=== PATIENT | female | born 1980 | race American Indian/Alaskan Native ===

== ENCOUNTER 2019-04-24 10:19 | Emergency (ER) | payer SELFPAY ==
[2019-04-24 10:24] VITALS: BP 141/99
[2019-04-24] MEDS ORDERED: DECADRON IV ONE (11:59)
[2019-04-24] MEDS ORDERED: PEPCID IV ONE (11:59)
[2019-04-24] MEDS ORDERED: BENADRYL IV ONE (11:59)
[2019-04-24] MEDS ORDERED: NACL 0.9% 1000 ML 1,000 ML IV ONE (11:59)
--- NOTE | 2019-04-24 12:42 | Emergency Department Report ---
ED Allergic Reaction HPI - General Chief complaint: Allergic Reaction Stated complaint: RASH Time Seen by Provider: 04/24/19 11:20 Source: patient Mode of arrival: Ambulatory Limitations: No Limitations - History of Present Illness Initial Comments: This is a 38-year-old female nontoxic, well nourished in appearance, no acute signs of distress presents to the ED with c/o of rash and itching x2 days. Patient is not sure what the cause of this is. Patient states it is itching and redness. Patient denies any drooling, hoarseness or facial swelling. Patient denies any trauma. She denies any fever, chills, nausea, vomiting, chest pain, shortness of breath, headache, stiff neck, numbness or tingling. Patient states allergies to Motrin and guaifenesin. MD Complaint: allergic reaction -: days(s) Exposure: unknown Symptoms: rash, itching. denies: facial swelling, lip swelling, difficulty swallowing, difficulty breathing, orolingual swelling, hoarseness, syncopy, dizziness, nausea, vomiting, abdominal pain Severity: mild Treatment Prior to Arrival: none Previous Allergy History: none - Related Data Previous Rx's Medication Instructions Recorded Last Taken Type Clindamycin [Clindamycin CAP] 300 mg PO Q8H #20 cap 04/09/15 Unknown Rx oxyCODONE /ACETAMINOPHEN [Percocet 1 tab PO Q6HR PRN #20 tablet 04/09/15 Unknown Rx 5/325] Prednisone [predniSONE 10 mg 10 mg PO .TAPER #1 tab.ds.pk 04/24/19 Unknown Rx (6-Day Pack, 21 Tabs)] diphenhydrAMINE [Benadryl CAP] 25 mg PO Q6HR PRN #20 capsule 04/24/19 Unknown Rx Allergies Allergy/AdvReac Type Severity Reaction Status Date / Time guaifenesin Allergy Severe DIZZINESS,SHALLOW Verified 04/09/15 04:19 BREATHING ibuprofen Allergy Intermediate BLEEDING Verified 04/09/15 04:19 ULCER ED Review of Systems ROS: Stated complaint: RASH Other details as noted in HPI Constitutional: denies: chills, fever Eyes: denies: eye pain, eye discharge, vision change ENT: denies: ear pain, throat pain Respiratory: denies: cough, shortness of breath, wheezing Cardiovascular: denies: chest pain, palpitations Endocrine: no symptoms reported Gastrointestinal: denies: abdominal pain, nausea, diarrhea Genitourinary: denies: urgency, dysuria, discharge Musculoskeletal: denies: back pain, joint swelling, arthralgia Skin: rash, pruritus. denies: lesions Neurological: denies: headache, weakness, paresthesias Psychiatric: denies: anxiety, depression Hematological/Lymphatic: denies: easy bleeding, easy bruising ED Past Medical Hx - Past Medical History Previous Medical History?: Yes Hx Hypertension: Yes Hx Headaches / Migraines: Yes Hx Psychiatric Treatment: (Depression, Anxiety) Hx Asthma: Yes Additional medical history: Scoliosis; Ezema; Tachycardia - Surgical History Past Surgical History?: Yes Hx Cholecystectomy: Yes Additional Surgical History: x2 - Social History Smoking Status: Current Every Day Smoker Substance Use Type: Alcohol - Medications Home Medications: Home Medications Medication Instructions Recorded Confirmed Last Taken Type Clindamycin [Clindamycin CAP] 300 mg PO Q8H #20 cap 04/09/15 Unknown Rx oxyCODONE /ACETAMINOPHEN [Percocet 1 tab PO Q6HR PRN #20 tablet 04/09/15 Unknown Rx 5/325] Prednisone [predniSONE 10 mg 10 mg PO .TAPER #1 tab.ds.pk 04/24/19 Unknown Rx (6-Day Pack, 21 Tabs)] diphenhydrAMINE [Benadryl CAP] 25 mg PO Q6HR PRN #20 capsule 04/24/19 Unknown Rx ED Physical Exam - General Limitations: No Limitations General appearance: alert, in no apparent distress - Head Head exam: Present: atraumatic, normocephalic - Eye Eye exam: Present: normal appearance - ENT ENT exam: Present: normal exam, normal orophraynx, other (no facial swelling. no angioedema) - Neck Neck exam: Present: normal inspection, full ROM, other. Absent: tenderness, meningismus, lymphadenopathy - Respiratory Respiratory exam: Present: normal lung sounds bilaterally. Absent: respiratory distress, wheezes, rales, rhonchi, stridor, chest wall tenderness, accessory muscle use, decreased breath sounds, prolonged expiratory - Extremities Exam Extremities exam: Present: normal inspection, full ROM - Back Exam Back exam: Present: normal inspection, full ROM - Neurological Exam Neurological exam: Present: alert, oriented X3 - Psychiatric Psychiatric exam: Present: normal affect, normal mood - Skin Skin exam: Present: warm, dry, intact, normal color, rash ED Course Vital Signs 04/24/19 04/24/19 10:21 12:24 Temperature 98.3 F Pulse Rate 123 H Respiratory 22 18 Rate Blood Pressure 141/99 O2 Sat by Pulse 100 Oximetry - Reevaluation(s) Reevaluation #1: 04/24/19 12:40 Patient is speaking in full sentences with no signs of distress noted. ED Medical Decision Making - Medical Decision Making This is a 38-year-old female that presents with allergic reaction. Patient is stable was examined by me. There is no facial swelling. No angioedema. There is no cellulitis. No hoarseness. Patient received 1 L normal saline, Benadryl, Decadron, and Pepcid in the ED IV. Patient was instructed not to operate any machinery after discharge due to possible drowsiness of Benadryl. Patient stated that a family member will drive patient home after discharge. Patient is discharged with prednisone and Benadryl. Patient was referred to Follow-up with a primary care doctor in 3-5 days or if symptoms worsen and continue return to emergency room as soon as possible. At time of discharge, the patient does not seem toxic or ill in appearance. No acute signs of distress noted. Patient agrees to discharge treatment plan of care. No further questions noted by the patient. Critical care attestation.: If time is entered above; I have spent that time in minutes in the direct care of this critically ill patient, excluding procedure time. ED Disposition Clinical Impression: Allergic reaction Qualifiers: Encounter type: initial encounter Qualified Code(s): T78.40XA - Allergy, unspecified, initial encounter Disposition: - TO HOME OR SELFCARE Is pt being admited?: No Does the pt Need Aspirin: No Condition: Stable Instructions: Urticaria (ED), Diphenhydramine (By mouth) Additional Instructions: Follow-up with a primary care doctor in 3-5 days or if symptoms worsen and continue return to emergency room as soon as possible. Prescriptions: diphenhydrAMINE [Benadryl CAP] 25 mg PO Q6HR PRN #20 capsule PRN Reason: Itching Prednisone [predniSONE 10 mg (6-Day Pack, 21 Tabs)] 10 mg PO .TAPER #1 tab.ds.pk Referrals: [place] LUIS EDUARDO [Primary Care Provider] - 3-5 Days PRIMARY CAREMD [Referring] - 3-5 Days FRANCISCA SCHUMACHER MD [Staff Physician] - 3-5 Days [facility] [Outside] - 3-5 Days [facility] [Outside] - 3-5 Days Forms: Work/School Release Form(ED)
== END 2019-04-24 13:53 | disposition home or self-care (01) ==
LOC: ED 10:19
DX: T78.40XA Allergy, unspecified, initial encounter (principal); I10 Essential (primary) hypertension; G43.909 Migraine, unspecified, not intractable, without status migrainosus; J45.909 Unspecified asthma, uncomplicated; F41.9 Anxiety disorder, unspecified; F32.9 Major depressive disorder, single episode, unspecified; F17.200 Nicotine dependence, unspecified, uncomplicated; Z90.49 Acquired absence of other specified parts of digestive tract; Z79.899 Other long term (current) drug therapy; Z88.6 Allergy status to analgesic agent; X58.XXXA Exposure to other specified factors, initial encounter
CPT/HCPCS: 96374; 96375; 99282; J1100; J1200; J7030

== ENCOUNTER 2019-11-27 21:45 | Emergency (ER) | payer BC ==
[2019-11-27 23:08] VITALS: BP 145/85
[2019-11-27] MEDS ORDERED: diphenhydrAMINE 50 MG/ML VIAL ONE (23:34)
[2019-11-27] MEDS ORDERED: KETOROLAC 30 MG/1 ML INJ ONE (23:34)
[2019-11-27] MEDS ORDERED: METOCLOPRAMIDE 10 MG/2 ML INJ ONE (23:34)
[2019-11-27] MEDS ORDERED: diphenhydrAMINE 50 MG/ML VIAL IV ONE (23:38)
[2019-11-27] MEDS ORDERED: METOCLOPRAMIDE 10 MG/2 ML INJ IV ONE (23:38)
[2019-11-27] MEDS ORDERED: KETOROLAC 30 MG/1 ML INJ IV ONE (23:38)
--- NOTE | 2019-11-28 00:41 | Emergency Department Report ---
ED Headache HPI - General Chief Complaint: Headache Stated Complaint: SEVERE HEADACHE Time Seen by Provider: 11/28/19 00:36 Source: patient - History of Present Illness Initial Comments: 39-year-old -[place]ones[place] female presents to the emergency room stating she had a headache that started earlier this week and has gotten worse tonight while at work. Patient states that it feels like someone is stomping on her head. Patient reports sensitivity to light and sound. Patient denies any nausea vomiting. Patient denies any weakness slurred speech no neuro deficits. Patient does admit to a history of migraines and fibromyalgia. Patient states that she has been taken her pain medication without resolution of pain. Timing/Duration: 1 week Quality: severe Head Injury Location: frontal Recent Head Trauma: no recent headache/trauma Modifying Factors: improves with: exposure to light Associated Symptoms: denies: fatigue, facial pain, fever/chills, nausea/vomiting, nasal congestion, sinus infection, stiff neck, vision changes, weakness Allergies/Adverse Reactions: Allergies guaifenesin Allergy (Severe, Verified 04/09/15 04:19) DIZZINESS,SHALLOW BREATHING ibuprofen Allergy (Intermediate, Verified 04/09/15 04:19) BLEEDING ULCER Home Medications: Ambulatory Orders Clindamycin [Clindamycin CAP] 300 mg PO Q8H #20 cap 04/09/15 oxyCODONE /ACETAMINOPHEN [Percocet 5/325] 1 tab PO Q6HR PRN #20 tablet 04/09/15 Prednisone [predniSONE 10 mg (6-Day Pack, 21 Tabs)] 10 mg PO .TAPER #1 tab.ds.pk 04/24/19 diphenhydrAMINE [Benadryl CAP] 25 mg PO Q6HR PRN #20 capsule 04/24/19 Butalb/Acetamin/Caff 50-325-40 [Fioricet 50-325-40] 1 tab PO Q6HR PRN #20 tab 11/28/19 ED Review of Systems ROS: Stated complaint: SEVERE HEADACHE Other details as noted in HPI Comment: All other systems reviewed and negative ED Past Medical Hx - Past Medical History Previous Medical History?: Yes Hx Hypertension: Yes Hx Headaches / Migraines: Yes Hx Psychiatric Treatment: (Depression, Anxiety) Hx Asthma: Yes Additional medical history: Scoliosis; Ezema; Tachycardia - Surgical History Past Surgical History?: Yes Hx Cholecystectomy: Yes Additional Surgical History: x2 - Social History Smoking Status: Current Every Day Smoker Substance Use Type: None - Medications Home Medications: Home Medications Medication Instructions Recorded Confirmed Last Taken Type Clindamycin [Clindamycin CAP] 300 mg PO Q8H #20 cap 04/09/15 Unknown Rx oxyCODONE /ACETAMINOPHEN [Percocet 1 tab PO Q6HR PRN #20 tablet 04/09/15 Unknown Rx 5/325] Prednisone [predniSONE 10 mg 10 mg PO .TAPER #1 tab.ds.pk 04/24/19 Unknown Rx (6-Day Pack, 21 Tabs)] diphenhydrAMINE [Benadryl CAP] 25 mg PO Q6HR PRN #20 capsule 04/24/19 Unknown Rx Butalb/Acetamin/Caff 50-325-40 1 tab PO Q6HR PRN #20 tab 11/28/19 Unknown Rx [Fioricet 50-325-40] ED Physical Exam - General Limitations: No Limitations General appearance: alert, in distress - Head Head exam: Present: atraumatic, normocephalic, normal inspection - Eye Eye exam: Present: normal appearance - ENT ENT exam: Present: mucous membranes moist - Respiratory Respiratory exam: Present: normal lung sounds bilaterally. Absent: respiratory distress - Cardiovascular Cardiovascular Exam: Present: tachycardia - GI/Abdominal GI/Abdominal exam: Present: soft, normal bowel sounds - Extremities Exam Extremities exam: Present: normal inspection, full ROM - Back Exam Back exam: Present: normal inspection - Neurological Exam Neurological exam: Present: alert, oriented X3 - Expanded Neurological Exam Expanded Cranial nerves: EOM's Intact: Normal, Gag Reflex: Normal, Tongue Deviation: Normal, Nystagmus: Normal, Facial Sensation: Normal, Facial Palsy with Forehead Movement: Normal, Facial Palsy without Forehead Movement: Normal Cerebellar function: Finger to Nose: Normal, Heel to Samuel: Normal, Romberg: Normal Upper motor neuron: Deven Neglect: Normal, Pronator Drift: Normal, Sensory Extinction: Normal Sensory exam: Upper Extremity Light Touch: Normal, Upper Extremity Pin Prick: Normal, Upper Extremity Temperature: Normal, UE 2 Point Discrimination: Normal, Lower Extremity Light Touch: Normal, Lower Extremity Pin Prick: Normal, Lower Extremity Temperature: Normal, LE 2 Point Discrimination: Normal Motor strength exam: RUE: 4, LUE: 4, RLE: 4, LLE: 4 Best Eye Response ([place]): (4) open spontaneously Best Motor Response ([place]): (6) obeys commands Best Verbal Response ([place]): (5) oriented [place] Total: 15 - Psychiatric Psychiatric exam: Present: normal affect, normal mood - Skin Skin exam: Present: warm, dry, intact, normal color. Absent: rash ED Course Vital Signs 11/27/19 23:03 Temperature 98.2 F Pulse Rate 102 H Respiratory 18 Rate Blood Pressure 145/85 O2 Sat by Pulse 100 Oximetry ED Medical Decision Making - Medical Decision Making 39-year-old -[place]ones[place] female presents to the emergency room stating she had a headache that started earlier this week and has gotten worse tonight while at work. Patient states that it feels like someone is stomping on her head. Patient reports sensitivity to light and sound. Patient denies any nausea vomiting. Patient denies any weakness slurred speech no neuro deficits. Patient does admit to a history of migraines and fibromyalgia. Patient states that she has been taken her pain medication without resolution of pain. Patient was given the cocktail for migraines. Patient reports that the cocktail has helped with her headache. Critical care attestation.: If time is entered above; I have spent that time in minutes in the direct care of this critically ill patient, excluding procedure time. ED Disposition Clinical Impression: Migraines Disposition: DC-01 TO HOME OR SELFCARE Is pt being admited?: No Does the pt Need Aspirin: No Condition: Stable Instructions: Butalbital/Acetaminophen/Caffeine (By mouth) Additional Instructions: Follow-up with your neurologist. Take headache medication as needed. Prescriptions: Butalb/Acetamin/Caff 50-325-40 [Fioricet 50-325-40] 1 tab PO Q6HR PRN #20 tab PRN Reason: Headache Referrals: PRIMARY CARE, [Primary Care Provider] - 3-5 Days Forms: Work/School Release Form(ED), Accompanied Note
== END 2019-11-28 00:45 | disposition home or self-care (01) ==
LOC: ED 21:45
DX: G43.909 Migraine, unspecified, not intractable, without status migrainosus (principal); I10 Essential (primary) hypertension; F32.9 Major depressive disorder, single episode, unspecified; F41.9 Anxiety disorder, unspecified; F17.200 Nicotine dependence, unspecified, uncomplicated; Z90.49 Acquired absence of other specified parts of digestive tract; Z79.899 Other long term (current) drug therapy; Z88.8 Allergy status to other drugs, medicaments and biological substances
CPT/HCPCS: 96374; 96375; 99282; J1200; J1885; J2765